=== PATIENT | female | born 1995 ===

== ENCOUNTER 2017-05-17 12:01 | Emergency (ER) | payer OTHER ==
[~2017-05-17] VITALS: Ht 160 cm; Wt 54.4 kg
[2017-05-17] MEDS ORDERED: IV NORMAL SALINE 1000 ML BAG IV ONE (13:00)
[2017-05-17] MEDS ORDERED: KETOROLAC TROMETHAMINE 30 MG INJ IVP ONE (13:00)
[2017-05-17] MEDS ORDERED: DEXAMETHASONE SOD PHOSPHATE 4 MG INJ IV ONE (13:00)
[2017-05-17] MEDS ORDERED: CLINDAMYCIN PHOSPHATE IV 600 MG in IV DEXTROSE 5% 100 ML IV ONE (13:00)
[2017-05-17 13:10] LABS: BASOPHILS % (AUTO) 0.8 % (0.0-2.0); EOSINOPHILS # (AUTO) 0.1 K/uL (0.0-0.7); EOSINOPHILS % (AUTO) 1.3 % (0.0-7.0); HEMATOCRIT 42.2 % (37-47); HEMOGLOBIN 14.2 G/DL (12.0-16.0); LYMPHOCYTES # (AUTO) 1.2 K/UL (0.8-4.8); LYMPHOCYTES % (AUTO) 20.7 % (20.5-74.5); MEAN CORPUSCULAR HEMOGLOBIN 29.8 UUG (27.0-31.0); MEAN CORPUSCULAR HGB CONC 34 g/dL (32.0-37.0); MEAN CORPUSCULAR VOLUME 88.7 FL (81.0-99.0); MONOCYTES # (AUTO) 0.5 K/UL (0.1-1.30); NEUTROPHILS # (AUTO) 3.9 K/UL (1.8-8.9); NEUTROPHILS % (AUTO) 69.2 % (31.5-64.5); PLATELET COUNT (AUTO) 210 K/UL (150-450); RED BLOOD CELL COUNT(AUTO) 4.76 MIL/UL (4.2-5.4); WHITE BLOOD COUNT (AUTO) 5.7 K/UL (4.0-11.2)
[2017-05-17] MEDS ORDERED: DEXAMETHASONE SOD PHOSPHATE 10 MG INJ ONE (13:11)
[2017-05-17] MEDS ORDERED: KETOROLAC TROMETHAMINE 30 MG INJ ONE (13:11)
[2017-05-17] MEDS ORDERED: CLINDAMYCIN PHOSPHATE 600 MG/4 ML VIAL ONE (13:11)
[2017-05-17 13:16] LABS: CARBON DIOXIDE 24 mmol/L (21-32); CHLORIDE 105 mmol/L (98-107); CREATININE 0.5 mg/dL (0.6-1.3); GLUCOSE 92 mg/dL (74-106); POTASSIUM 4.1 mmol/L (3.5-5.1); UREA NITROGEN, BLOOD 7 mg/dL (7-18)
--- NOTE | 2017-05-17 13:19 | NUR ---
SL in rt hand 22g site without redness or swelling noted, medications given tolerated well no adverse reaction noted at this time. Family at bedside at this time as well.
[2017-05-17 13:23] LABS: ALANINE AMINOTRANSFERASE 83 U/L (14-59); ALKALINE PHOSPHATASE 51 U/L (50-136); ASPARTATE AMINOTRANSFERASE 59 U/L (15-37); BILIRUBIN,DIRECT 0.2 mg/dL (0.0-0.2); BILIRUBIN,TOTAL 0.7 mg/dL (0.2-1.0); TOTAL PROTEIN, SERUM 7.5 g/dL (6.4-8.2)
--- NOTE | 2017-05-17 14:30 | NUR ---
IVF and abx complete at this time pt also c/o breast pain and Dr. Sanches at bedside to assess and spoke with pt at bedside with nurse present at the time of exam.
--- NOTE | 2017-05-17 14:56 | NUR ---
Dc'd to home in stable condition with sl removed and review rx with pt as well pt states that she understands.
[2017-05-17 14:58] VITALS: BP 123/78
== END 2017-05-17 15:00 | disposition home or self-care (01) ==
LOC: ER 13:01
DX: J36 Peritonsillar abscess (principal); N64.4 Mastodynia; Z88.0 Allergy status to penicillin
CPT/HCPCS: 36415; 70030-TC; 71010; 83605; 84703; 85025; 85730; 87040; A4663; J1100; J1885; J3490; J7030

== ENCOUNTER 2017-09-28 14:53 | Emergency (ER) | payer OTHER ==
--- NOTE | 2017-09-28 15:00 | NUR ---
Attempted to triage pt, pt not found in ER lobby. Per ER admitting pt stated her grandmother is a pt on 2nd floor and she needs to go see her.
== END 2017-09-28 15:03 | disposition left against medical advice (07) ==
LOC: ER 14:53
DX: Z53.21 Procedure and treatment not carried out due to patient leaving prior to being seen by health care provider (principal)